=== PATIENT | female | born 1985 | race American Indian/Alaskan Native ===

== ENCOUNTER 2019-03-18 15:46 | Emergency (ER) | payer MEDICAID ==
[2019-03-18 16:54] LABS: Basophils # (Auto) 0.1 K/mm3 (0.0-0.1); Basophils % (Auto) 1.1 % (0.0-1.8); Eosinophils # (Auto) 0.1 K/mm3 (0.0-0.4); Eosinophils % (Auto) 1.3 % (0.0-4.3); Lymphocytes # (Auto) 3.1 K/mm3 (1.2-5.4); Lymphocytes % (Auto) 32.4 % (13.4-35.0); Mean Corpuscular HGB Conc 33 % (30-34); Mean Corpuscular Hemoglobin 29 pg (28-32); Mean Corpuscular Volume 86 fl (79-97); Monocytes # (Auto) 0.7 K/mm3 (0.0-0.8); Monocytes % (Auto) 7.2 % (0.0-7.3); Platelet Count 265 K/mm3 (140-440); Red Blood Count 4.87 M/mm3 (3.65-5.03); Red Cell Distribution Width 13.6 % (13.2-15.2)
--- NOTE | 2019-03-18 17:09 | XRay Report ---
CHEST 2 VIEWS INDICATION / CLINICAL INFORMATION: Chest Pain. COMPARISON: None available. FINDINGS: SUPPORT DEVICES: None. HEART / MEDIASTINUM: No significant abnormality. LUNGS / PLEURA: No significant pulmonary or pleural abnormality. No pneumothorax. ADDITIONAL FINDINGS: No significant additional findings. IMPRESSION: 1. No acute findings. Signer Name: Tahir Langston MD Signed: 03/18/2019 5:05 PM Workstation Name: [id number]
[2019-03-18 17:15] LABS: BUN/Creatinine Ratio 25; Blood Urea Nitrogen 15 mg/dL (7-17); Calcium 9.8 mg/dL (8.4-10.2); Hemolysis Index 4
[2019-03-18] MEDS ORDERED: BENTYL PO ONE (17:54)
[2019-03-18] MEDS ORDERED: ALUM-MAG HYDROX-SIMETH 200-200-20MG/5ML PO ONE (17:54)
[2019-03-18] MEDS ORDERED: LIDOCAINE VISCOUS 2% PO ONE (17:54)
--- NOTE | 2019-03-18 17:56 | Emergency Department Report ---
ED Abdominal Pain HPI - General Chief Complaint: Abdominal Pain Stated Complaint: epigastric Time Seen by Provider: 03/18/19 17:15 Source: patient Mode of arrival: Stretcher Limitations: No Limitations - History of Present Illness Initial Comments: Patient is a 33-year-old female who presents to the emergency room with complaints of epigastric abdominal pain that radiates up her chest and into the back that began 3 days ago. She describes the pain as a burning sensation. she has associated nausea and lightheadedness. Patient denies any vomiting, diarrhea, urinary symptoms. States she took Pepcid with some relief of her sx. The patient states she is currently breast-feeding and has not had a menstrual cycle. Denies any past medical history. she states she has an allergy to aspirin. - Related Data Previous Rx's Medication Instructions Recorded Last Taken Type Docusate Sodium [Colace] 100 mg PO BID PRN #20 capsule 03/18/19 Unknown Rx Nitrofurantoin Mills/M-Cryst 100 mg PO BID 5 Days #10 capsule 03/18/19 Unknown Rx [Macrobid CAP] Sucralfate [Carafate] 1 gm PO Q6HR #3 tablet 03/18/19 Unknown Rx Allergies Allergy/AdvReac Type Severity Reaction Status Date / Time No Known Allergies Allergy Verified 03/18/19 17:57 ED Review of Systems ROS: Stated complaint: DIZZINESS Other details as noted in HPI Comment: All other systems reviewed and negative ED Past Medical Hx - Past Medical History Previous Medical History?: No - Surgical History Past Surgical History?: No - Social History Smoking Status: Never Smoker Substance Use Type: None - Medications Home Medications: Home Medications Medication Instructions Recorded Confirmed Last Taken Type Docusate Sodium [Colace] 100 mg PO BID PRN #20 capsule 03/18/19 Unknown Rx Nitrofurantoin Mills/M-Cryst 100 mg PO BID 5 Days #10 capsule 03/18/19 Unknown Rx [Macrobid CAP] Sucralfate [Carafate] 1 gm PO Q6HR #3 tablet 03/18/19 Unknown Rx ED Physical Exam - General Limitations: No Limitations General appearance: alert, in no apparent distress - Head Head exam: Present: atraumatic, normocephalic - Eye Eye exam: Present: normal appearance, PERRL - ENT ENT exam: Present: mucous membranes moist - Respiratory Respiratory exam: Present: normal lung sounds bilaterally. Absent: respiratory distress, wheezes, rales, rhonchi, stridor, chest wall tenderness, accessory muscle use, decreased breath sounds, prolonged expiratory - Cardiovascular Cardiovascular Exam: Present: regular rate, normal rhythm, normal heart sounds. Absent: systolic murmur, diastolic murmur, rubs, gallop - GI/Abdominal GI/Abdominal exam: Present: soft, normal bowel sounds. Absent: distended, t enderness, guarding, rebound, rigid - Back Exam Back exam: Absent: CVA tenderness (R), CVA tenderness (L) - Neurological Exam Neurological exam: Present: alert, oriented X3 - Psychiatric Psychiatric exam: Present: normal affect, normal mood - Skin Skin exam: Present: warm, dry, intact ED Course Vital Signs 03/18/19 03/18/19 16:02 21:27 Temperature 98.1 F 98.6 F Pulse Rate 90 73 Respiratory 16 16 Rate Blood Pressure 141/86 Blood Pressure 146/79 [Right] O2 Sat by Pulse 100 99 Oximetry ED Medical Decision Making - Lab Data Result diagrams: 03/18/19 16:13 03/18/19 16:13 Lab Results 03/18/19 03/18/19 03/18/19 Range/Units 16:13 16:13 16:13 WBC 9.7 (4.5-11.0) K/mm3 RBC 4.87 (3.65-5.03) M/mm3 Hgb 14.0 (10.1-14.3) gm/dl Hct 42.0 (30.3-42.9) % MCV 86 (79-97) fl MCH 29 (28-32) pg MCHC 33 (30-34) % RDW 13.6 (13.2-15.2) % Plt Count 265 (140-440) K/mm3 Lymph % (Auto) 32.4 (13.4-35.0) % Mills % (Auto) 7.2 (0.0-7.3) % Eos % (Auto) 1.3 (0.0-4.3) % Baso % (Auto) 1.1 (0.0-1.8) % Lymph # 3.1 (1.2-5.4) K/mm3 Mills # 0.7 (0.0-0.8) K/mm3 Eos # 0.1 (0.0-0.4) K/mm3 Baso # 0.1 (0.0-0.1) K/mm3 Seg Neutrophils % 58.0 (40.0-70.0) % Seg Neutrophils # 5.6 (1.8-7.7) K/mm3 Sodium 140 (137-145) mmol/L Potassium 3.7 (3.6-5.0) mmol/L Chloride 101.3 (98-107) mmol/L Carbon Dioxide 27 (22-30) mmol/L Anion Gap 15 mmol/L BUN 15 (7-17) mg/dL Creatinine 0.6 L (0.7-1.2) mg/dL Estimated GFR > 60 ml/min BUN/Creatinine Ratio 25 % Glucose 114 H (65-100) mg/dL Calcium 9.8 (8.4-10.2) mg/dL Total Bilirubin 0.50 (0.1-1.2) mg/dL Direct Bilirubin < 0.2 (0-0.2) mg/dL Indirect Bilirubin 0.3 mg/dL AST 18 (5-40) units/L ALT 12 (7-56) units/L Alkaline Phosphatase 55 (35-129) units/L Troponin T < 0.010 (0.00-0.029) ng/mL Total Protein 8.1 (6.3-8.2) g/dL Albumin 4.5 (3.9-5) g/dL Albumin/Globulin Ratio 1.3 % Lipase 27 (13-60) units/L Urine Color (Yellow) Urine Turbidity (Clear) Urine pH (5.0-7.0) Ur Specific [place] (1.003-1.030) Urine Protein (Negative) mg/dL Urine Glucose (UA) (Negative) mg/dL Urine Ketones (Negative) mg/dL Urine Blood (Negative) Urine Nitrite (Negative) Urine Bilirubin (Negative) Urine Urobilinogen (<2.0) mg/dL Ur Leukocyte Esterase (Negative) Urine WBC (Auto) (0.0-6.0) /HPF Urine RBC (Auto) (0.0-6.0) /HPF U Epithel Cells (Auto) (0-13.0) /HPF Urine Bacteria (Auto) (Negative) /HPF Urine HCG, Qual (Negative) 03/18/19 Range/Units 18:58 WBC (4.5-11.0) K/mm3 RBC (3.65-5.03) M/mm3 Hgb (10.1-14.3) gm/dl Hct (30.3-42.9) % MCV (79-97) fl MCH (28-32) pg MCHC (30-34) % RDW (13.2-15.2) % Plt Count (140-440) K/mm3 Lymph % (Auto) (13.4-35.0) % Mills % (Auto) (0.0-7.3) % Eos % (Auto) (0.0-4.3) % Baso % (Auto) (0.0-1.8) % Lymph # (1.2-5.4) K/mm3 Mills # (0.0-0.8) K/mm3 Eos # (0.0-0.4) K/mm3 Baso # (0.0-0.1) K/mm3 Seg Neutrophils % (40.0-70.0) % Seg Neutrophils # (1.8-7.7) K/mm3 Sodium (137-145) mmol/L Potassium (3.6-5.0) mmol/L Chloride (98-107) mmol/L Carbon Dioxide (22-30) mmol/L Anion Gap mmol/L BUN (7-17) mg/dL Creatinine (0.7-1.2) mg/dL Estimated GFR ml/min BUN/Creatinine Ratio % Glucose (65-100) mg/dL Calcium (8.4-10.2) mg/dL Total Bilirubin (0.1-1.2) mg/dL Direct Bilirubin (0-0.2) mg/dL Indirect Bilirubin mg/dL AST (5-40) units/L ALT (7-56) units/L Alkaline Phosphatase (35-129) units/L Troponin T (0.00-0.029) ng/mL Total Protein (6.3-8.2) g/dL Albumin (3.9-5) g/dL Albumin/Globulin Ratio % Lipase (13-60) units/L Urine Color Yellow (Yellow) Urine Turbidity Slightly-cloudy (Clear) Urine pH 5.0 (5.0-7.0) Ur Specific [place] 1.014 (1.003-1.030) Urine Protein <15 mg/dl (Negative) mg/dL Urine Glucose (UA) Neg (Negative) mg/dL Urine Ketones Neg (Negative) mg/dL Urine Blood Sm (Negative) Urine Nitrite Neg (Negative) Urine Bilirubin Neg (Negative) Urine Urobilinogen < 2.0 (<2.0) mg/dL Ur Leukocyte Esterase Sm (Negative) Urine WBC (Auto) 11.0 H (0.0-6.0) /HPF Urine RBC (Auto) 4.0 (0.0-6.0) /HPF U Epithel Cells (Auto) 8.0 (0-13.0) /HPF Urine Bacteria (Auto) 1+ (Negative) /HPF Urine HCG, Qual Negative (Negative) - EKG Data EKG shows normal: sinus rhythm, axis, intervals, QRS complexes, ST-T waves Rate: normal - Radiology Data Radiology results: report reviewed cc: CHALO JACKSON Fluoro Time In Minutes: AP and upright abdomen INDICATION: Epigastric pain FINDINGS: The bowel gas pattern is normal with no ileus or obstruction. No free air or significant air-fluid levels. No renal or ureteral calculi. There is only a moderate amount of stool in colon without definite constipation or fecal impaction. No significant abnormality. Signer Name: Tahir Langston MD Signed: 03/18/2019 6:46 PM Workstation Name: [id number] Transcribed By: KAE Dictated By: Tahir Langston MD Electronically Authenticated By: Tahir Langston MD Signed Date/Time: 03/18/19 6516 CHEST 2 VIEWS INDICATION / CLINICAL INFORMATION: Chest Pain. COMPARISON: None available. FINDINGS: SUPPORT DEVICES: None. HEART / MEDIASTINUM: No significant abnormality. LUNGS / PLEURA: No significant pulmonary or pleural abnormality. No pneumothorax. ADDITIONAL FINDINGS: No significant additional findings. IMPRESSION: 1. No acute findings. Signer Name: Tahir Langston MD Signed: 03/18/2019 5:05 PM Workstation Name: [id number] Transcribed By: KAE Dictated By: Tahir Langston MD Electronically Authenticated By: Tahir Langston MD Signed Date/Time: 03/18/19 8475 - Medical Decision Making Patient is a 33-year-old female who presents to the emergency room with complaints of epigastric abdominal pain that radiates up her chest and into the back that began 3 days ago. She describes the pain as a burning sensation. she has associated nausea and lightheadedness. Patient denies any vomiting, diarrhea, urinary symptoms. States she took Pepcid with some relief of her sx. The patient states she is currently breast-feeding and has not had a menstrual cycle. Denies any past medical history. she states she has an allergy to aspirin. VSS. no abd tenderness on exam. labs WNL. UA shows evidence of UTI. EKG WNL. CXR WNL. Abdominal XR with stool present otherwise normal. pt given GI cocktail in the ED and her symptoms improved. pt given prescription for carfate, macrobid, and colace. advised to take medication as prescribed. Drink plenty of water and eat a high-fiber diet. please follow the diet for acid reflux to decrease your symptoms. continue to take your pepcid twice a day every day. follow up with a primary care doctor in the next 2-3 days. return to the emergency room for any new or worsening symptoms. - Differential Diagnosis GERD, PUD, SBO, ACS, UTI, constipation, cholelithiasis, pancreatitis Critical care attestation.: If time is entered above; I have spent that time in minutes in the direct care of this critically ill patient, excluding procedure time. ED Disposition Clinical Impression: Abdominal pain Qualifiers: Abdominal location: epigastric Qualified Code(s): R10.13 - Epigastric pain UTI (urinary tract infection) Qualifiers: Urinary tract infection type: acute cystitis Hematuria presence: without hematuria Qualified Code(s): N30.00 - Acute cystitis without hematuria GERD (gastroesophageal reflux disease) Qualifiers: Esophagitis presence: without esophagitis Qualified Code(s): K21.9 - Gastro- esophageal reflux disease without esophagitis Constipation Qualifiers: Constipation type: unspecified constipation type Qualified Code(s): K59.00 - C onstipation, unspecified Disposition: DC-01 TO HOME OR SELFCARE Is pt being admited?: No Does the pt Need Aspirin: No Condition: Stable Instructions: Gastroesophageal Reflux in Children (ED), Constipation (ED), Urinary Tract Infection in Women (ED), High Fiber Diet (ED), Diet for Ulcers and Gastritis (ED) Additional Instructions: Please take medication as prescribed. Drink plenty of water and eat a high- fiber diet. please follow the diet for acid reflux to decrease your symptoms. continue to take your pepcid twice a day every day. follow up with a primary care doctor in the next 2-3 days. return to the emergency room for any new or worsening symptoms. Prescriptions: Sucralfate [Carafate] 1 gm PO Q6HR #3 tablet Docusate Sodium [Colace] 100 mg PO BID PRN #20 capsule PRN Reason: Constipation Nitrofurantoin Mills/M-Cryst [Macrobid CAP] 100 mg PO BID 5 Days #10 capsule Referrals: VINCENT GAINES MD [Staff Physician] - 2-3 Days Time of Disposition: 20:52 Print Language: SWAZI
[2019-03-18 18:30] LABS: Alanine Aminotransferase 12 units/L (7-56); Albumin 4.5 g/dL (3.9-5); Lipase 27 units/L (13-60)
[2019-03-18 18:32] LABS: Bilirubin,Direct < 0.2 mg/dL (0-0.2)
--- NOTE | 2019-03-18 18:50 | XRay Report ---
AP and upright abdomen INDICATION: Epigastric pain FINDINGS: The bowel gas pattern is normal with no ileus or obstruction. No free air or significant ai r-fluid levels. No renal or ureteral calculi. There is only a moderate amount of stool in colon witho ut definite constipation or fecal impaction. No significant abnormality. Signer Name: Tahir Langston MD Signed: 03/18/2019 6:46 PM Workstation Name: [id number]
[2019-03-18 20:36] LABS: Bacteria,Urine 1+ /HPF (Negative); Bilirubin,Urine NEG (Negative); Blood,Urine SM (Negative); Color,Urine Yellow (Yellow); Protein,Urine <15 mg/dL mg/dL (Negative); Urobilinogen,Urine < 2.0 mg/dL (<2.0)
[2019-03-18 20:39] LABS: HCG Qualitative,Urine Negative (Negative)
[2019-03-18 21:28] VITALS: BP 146/79
== END 2019-03-18 21:28 | disposition home or self-care (01) ==
LOC: ED 15:46
DX: N39.0 Urinary tract infection, site not specified (principal); K21.9 Gastro-esophageal reflux disease without esophagitis; K59.00 Constipation, unspecified; Z79.899 Other long term (current) drug therapy
CPT/HCPCS: 36415; 71046; 74019; 80048; 80076; 81001; 81025; 83690; 84484; 85025; 87086; 93005; 93010; 99284